=== PATIENT | female | born 1995 | race Native Hawaiian/Other Pacific Islander ===

== ENCOUNTER 2022-05-27 11:32 | Emergency (ER) | payer OTHER ==
[~2022-05-27] VITALS: Ht 152.4 cm; Wt 48.5 kg
[2022-05-27 11:56] VITALS: BP 122/80
--- NOTE | 2022-05-27 12:40 | NUR ---
BIB FAMILY C/O COUGH, ON & OFF CHEST PAIN X 4 DAYS. DENIES N/V/D. AAOX4 WITH EVEN AND STEADY GAIT; LUNGS CLEAR BL; HR EVEN AND REGULAR; PT DENIES ANY FEVER, CP, SOB, OR COUGH AT THIS TIME; PATIENT STATES PAIN OF 0/10 AT THIS TIME.
[2022-05-27] MEDS ORDERED: SUD30 PO (15:32)
[2022-05-27] MEDS ORDERED: IBUP-2213 PO (15:32)
[2022-05-27 15:50] VITALS: BP 125/92
--- NOTE | 2022-05-27 15:50 | NUR ---
Patient discharged with v/s stable. Written and verbal after care instructions given and explained. Patient alert, oriented and verbalized understanding of instructions. Ambulatory with steady gait. All questions addressed prior to discharge. ID band removed. Patient advised to follow up with PMD. Rx of IBUPROFEN & SUDAFED given. Patient educated on indication of medication including possible reaction and side effects. Opportunity to ask questions provided and answered.
== END 2022-05-27 15:50 | disposition home or self-care (01) ==
LOC: MED 11:32
DX: M94.0 Chondrocostal junction syndrome [Tietze] (principal); R07.89 Other chest pain; K21.9 Gastro-esophageal reflux disease without esophagitis
CPT/HCPCS: 71045; 93005; 99283